=== PATIENT | female | born 1980 | race American Indian/Alaskan Native ===

== ENCOUNTER 2017-05-28 11:33 | Emergency (ER) | payer BC ==
[2017-05-28] MEDS ORDERED: FLEXERIL PO ONE (13:46)
[2017-05-28] MEDS ORDERED: DELTASONE PO ONE (13:46)
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
[2017-05-28 15:21] VITALS: BP 135/86
== END 2017-05-28 15:21 | disposition home or self-care (01) ==
LOC: ED 11:33
DX: S56.911A Strain of unspecified muscles, fascia and tendons at forearm level, right arm, initial encounter (principal); M79.1 Myalgia; X58.XXXA Exposure to other specified factors, initial encounter; Y93.9 Activity, unspecified; Y92.89 Other specified places as the place of occurrence of the external cause; Y99.9 Unspecified external cause status
CPT/HCPCS: 99282; J7512